=== PATIENT | male | born 1985 | race Caucasian/White ===

== ENCOUNTER 2016-04-05 10:32 | Emergency (ER) | payer OTHER ==
[~2016-04-05] VITALS: Ht 182.9 cm; Wt 96.3 kg
[2016-04-05 10:56] VITALS: BP 132/82; PULSE 64; TEMP 36.7; O2SAT 100; Ht 182.9 cm; Wt 96.3 kg
[2016-04-05] MEDS ORDERED: KETOROLAC TROMETHAMINE 60 MG/2 ML VIAL IM STA (11:59)
[2016-04-05] MEDS ORDERED: CYCL10TA6 PO (12:06)
--- NOTE | 2016-04-05 12:06 | EMERGENCY ROOM VISIT NOTE ---
ED Visit Note First contact with patient: 11:02 CHIEF COMPLAINT: Right low back pain 2 hours HISTORY OF PRESENT INJURY: Patient is a 30-year-old white male who presents emergency department for evaluation of right-sided low back pain that began acutely after he lifted a heavy wheelbarrow of firewood about 2 hours ago. He feels pain in his right low back that radiates slightly to his buttocks. It is worse with movement and particularly he states that it hurts to stand up straight. He has taken nothing, nor performed any interventions for his pain which he rates a 10/10. He reports a history of back problems for which he typically goes to the chiropractor, but states that he has not been there for some time. He denies any numbness, tingling or weakness into the lower extremities. No bowel or bladder incontinence. No falls or direct trauma to the back. REVIEW OF SYSTEMS: Review of systems as per HPI. All other systems reviewed were negative. At least 6 systems reviewed. PMH: Electronic medical records are reviewed and summarized as above/below. See Problem List. SOCIAL HISTORY: Patient lives at home. PHYSICAL EXAM: Vital Signs: Reviewed Nurse's notes. CONSTITUTIONAL: Patient is a well-appearing 30-year-old white male who is awake and alert and seated on the gurney in no acute distress. He does have some discomfort when he stands. NECK: No tenderness over the paraspinous muscles or the spinous processes of the posterior neck. NEUROLOGICAL: Alert and cooperative. Sensory and motor functions grossly intact. HEART: Regular rate and rhythm. LUNGS: Clear to auscultation. ABDOMEN: Bowel sounds are present. Abdomen is soft, nontender and nondistended. BACK: Examination of the patient's back do not note any areas of ecchymosis, abrasions or outward signs of trauma. He has no spinous processes of the thoracolumbar spine. There is some reproducible right-sided paraspinous muscle tenderness. No spasm. He has discomfort with flexion, rotation and lateral bending. LEGS: Normal gait, sensation and light touch is intact. Negative bilateral straight leg raising, normal and symmetrical knee reflexes. EMERGENCY DEPARTMENT COURSE: Patient was seen and examined as above. Old records are reviewed. Prior lumbar spine x-ray showed some mild early degenerative changes. He had driven himself to the emergency department. He was given Toradol 60 mg IM. His mechanism of injury is not consistent with fracture and therefore it was not felt that radiographs were indicated. I do not suspect acute cord compression or cauda equina syndrome. The patient was encouraged to rest, take an anti-inflammatory medicine, applied heat and was given a prescription for Flexeril that he can use as needed. He was encouraged to follow-up with his chiropractic provider tomorrow for further care and evaluation. [facility], and there were no red flags noted. Problem List Medical Problems: (1) Abdominal pain Status: Resolved (2) Acute appendicitis Status: Resolved (3) Anxiety Status: Chronic (4) Back pain Status: Resolved (5) Back pain Status: Resolved (6) Bronchitis Status: Resolved (7) Chest pain Status: Resolved (8) Depression Status: Chronic (9) Diarrhea Status: Resolved (10) Epigastric pain Status: Resolved (11) Esophageal Reflux Status: Chronic (12) Finger laceration Status: Resolved (13) Injury, crush, finger Status: Resolved (14) Right corneal abrasion Status: Resolved (15) RUQ abdominal pain Status: Resolved (16) URI (upper respiratory infection) Status: Resolved (17) VERTIGO Status: Resolved Surgical Problems: (1) History of appendectomy Status: Resolved Current/Historical Medications Scheduled PRN Cyclobenzaprine Hcl (Flexeril), 10 MG PO TID PRN for Muscle Spasms Allergies Coded Allergies: No Known Allergies (Verified , 04/05/16) Vital Signs Date Time Temp Pulse Resp B/P Pulse Ox O2 Delivery O2 Flow Rate FiO2 04/05/16 10:56 36.7 64 20 132/82 100 Room Air Medications Administered Medications (Trade) Dose Ordered Sig/Tegan Route Start Time Stop Time Status Last Admin Dose Admin Ketorolac Tromethamine (Toradol Inj) 60 mg NOW STAT IM 04/05/16 11:59 04/05/16 12:00 DC 04/05/16 12:13 60 MG Departure Information Impression Primary Impression: Lumbar strain Prescriptions Cyclobenzaprine Hcl (FLEXERIL) 10 Mg Tab 10 MG PO TID Y for Muscle Spasms, #20 TAB Prov: Lashonda Garcia PA 04/05/16 Referrals No Doctor, Assigned (PCP) Patient Instructions [facility] Additional Instructions Cyclobenzaprine (Flexeril) 10 mg: Take 1 pills 3 times daily as needed for muscle spasms.. Avoid alcohol, operating machinery or dangerous equipment, working on ladders or roofs, DRIVING, or situations where being under the influence may be dangerous. Ibuprofen(Motrin, Advil) may be used for fever or pain. Use 600mg every six hours as needed. Take with food. Avoid using more than 2400mg in a 24 hour period. Do not use 2400mg per day for more than three consecutive days without physician direction. Prolonged inappropriate use can lead to stomach upset or ulcers. This medication can be taken if you need to drive, work, or perform activities which may be dangerous when taking narcotic pain medication. (AND/OR) Acetaminophen(Tylenol) may be used for fever or pain. Use 1000mg every six hours as needed. Avoid using more than 3000mg in a 24 hour period. This medication can be taken if you need to drive, work, or perform activities which may be dangerous when taking narcotic pain medication. Rest and avoid heavy lifting until your symptoms resolve and then gradually return to full activity. A good rule of thumb is if it hurts your back to perform a certain activity, then it should be avoided until you are healthy again. A heating pad, warm compresses, or a hot shower may help with tight muscles and can be done several times a day as needed. Continue current medications. Return to the ER immediately for any numbness, tingling, severe pain, loss of control of your bowels or bladder, inability to walk, or as needed. Follow up with your primary care physician within 3-5 days for a recheck of your current condition. Problem Qualifiers Primary Impression: Lumbar strain Encounter type: initial encounter Qualified Codes: S39.012A - Strain of muscle, fascia and tendon of lower back, initial encounter
== END 2016-04-05 12:20 | disposition home or self-care (01) ==
LOC: C.EDB 10:34 → C.EDD 12:20
DX: S39.012A Strain of muscle, fascia and tendon of lower back, initial encounter (principal); X50.0XXA Overexertion from strenuous movement or load, initial encounter; Y99.8 Other external cause status

== ENCOUNTER 2016-07-23 08:02 | Emergency (ER) | payer OTHER ==
[~2016-07-23] VITALS: Ht 182.9 cm; Wt 98.0 kg
[2016-07-23 08:11] VITALS: TEMP 36.6; Ht 182.9 cm; Wt 98.0 kg
[2016-07-23] MEDS ORDERED: SODIUM CHLORIDE 0.9% 1000ML 1,000 ML IV STA (08:14)
[2016-07-23 08:54] LABS: BASO % 0.1 %; BASO ABS # 0.01 K/uL (0-0.2); COMPLETE YES; EOS % 3.1 %; HEMATOCRIT 44.6 % (42-52); IG% 0.2 %; LYMPH % 19.6 %; LYMPH ABS # 1.76 K/uL (1.2-3.4); MEAN CELL VOLUME 89.6 fL (80-100); MEAN CORPUSCULAR HEMOGLOBIN 31.9 pg (25-34); MEAN CORPUSCULAR HGB CONC 35.7 g/dl (32-36); MEAN PLATELET VOLUME 10.1 fL (7.4-10.4); MONO % 6.7 %; NEUT % 70.3 %; PLATELET COUNT 193 K/uL (130-400); RED BLOOD COUNT 4.98 M/uL (4.7-6.1)
--- NOTE | 2016-07-23 09:09 | DIAGNOSTIC IMAGING REPORT ---
PA CHEST WITH ABDOMINAL SERIES CLINICAL HISTORY: Upper abdominal pain. FINDINGS: A PA chest radiograph is compared to study dated 02/25/2016. The cardiomediastinal silhouette is unremarkable. The lungs and pleural spaces are clear. No pneumothorax is seen. The bony thorax is grossly intact. Supine and erect abdominal radiographs are correlated with abdominal CT dated 02/09/2014. There is a nonobstructed abdominal bowel gas pattern. No evidence of intraperitoneal free air is seen. Surgical clips are noted in the right lower quadrant. There are no abnormal abdominal calcifications. The lumbosacral spine and bony pelvis appear intact. IMPRESSION: 1. No active disease in the chest. 2. Unremarkable abdominal radiographs. Electronically signed by: Rubén Saucedo M.D. 07/23/2016 9:08 AM Dictated Date/Time: 07/23/2016 9:06 AM
[2016-07-23 09:15] LABS: ALT/SGPT 37 U/L (12-78); BLOOD UREA NITROGEN 6 mg/dl (7-18); BUN/CREATININE RATIO 7.7 (10-20); CARBON DIOXIDE 28 mmol/L (21-32); CHLORIDE 108 mmol/L (98-107); CREATININE 0.82 mg/dl (0.60-1.40); GLUCOSE 93 mg/dl (70-99); POTASSIUM 3.8 mmol/L (3.5-5.1); SODIUM 142 mmol/L (136-145)
[2016-07-23 09:18] LABS: ALKALINE PHOSPHATASE 61 U/L (45-117); AST/SGOT 18 U/L (15-37)
[2016-07-23 09:23] LABS: CALCIUM 8.9 mg/dl (8.5-10.1)
[2016-07-23 09:34] VITALS: BP 128/71; PULSE 63; O2SAT 94
[2016-07-23] MEDS ORDERED: PROM25TA9 PO (09:43)
[2016-07-23 09:58] LABS: URINE APPEARANCE CLEAR (CLEAR); URINE BILIRUBIN NEG (NEG); URINE COLOR YELLOW; URINE NITRITE NEG (NEG); URINE PH 7.5 (4.5-7.5); URINE SPECIFIC GRAVITY 1.003 (1.000-1.030); UROBILINOGEN NEG (NEG)
[2016-07-23 10:10] LABS: MANUAL MICROSCOPIC REQUIRED? NO; REVIEW REQ? NO
--- NOTE | 2016-07-23 16:21 | EMERGENCY ROOM VISIT NOTE ---
History First contact with patient: 08:08 Chief Complaint: ABDOMINAL PAIN Stated Complaint: STOMACH PAINS Nursing Triage Summary: pt here with upper abd pains since last pm. some nausea, no emesis. pt states did have diarrhea yesterday. no hx of stomach issues History of Present Illness The patient is a 30 year old male who presents to the Emergency Room with complaints of intermittent upper abdominal pain/cramping that started last night. The patient reports that he did have approximately 7-8 bouts of watery diarrhea yesterday. He reports nausea without vomiting this morning. The pain is dull in nature without any alleviating or aggravating factors. It does not radiate into the back, lower abdomen, chest or shoulder. Patient has a history of hiatal hernia. He is status post appendectomy. The patient currently rates his discomfort a 4 out of 10 on my exam. He denies any fever or chills. The patient reports that he has had sinus congestion, postnasal drip and productive cough for the past few weeks as well. Review of Systems HEENT: Denies dizziness, visual problems, hearing loss, tinnitus. Denies difficulty swallowing or oral lesions. PULMONARY: Denies shortness of breath or hemoptysis. Otherwise see history of present illness. CARDIOVASCULAR: Denies chest pain, palpitations, dyspnea on exertion, orthopnea or peripheral edema. GASTROINTESTINAL: Reports recent diarrhea and nausea without vomiting. Denies any other GI history. GENITOURINARY: Denies dysuria, frequency, urgency or nocturia. NEUROLOGIC: Denies history of epilepsy, CVA, TIA or chronic headaches. MUSCULOSKELETAL: Denies history of joint tenderness/swelling. SKIN: Denies rashes or lesions. PSYCHIATRIC: History of depression. ENDOCRINE: Denies history of diabetes or thyroid disorders. Past Medical/Surgical History Medical Problems: (1) Abdominal pain (2) Acute appendicitis (3) Anxiety (4) Back pain (5) Back pain (6) Bronchitis (7) Chest pain (8) Depression (9) Diarrhea (10) Epigastric pain (11) Esophageal Reflux (12) Finger laceration (13) Injury, crush, finger (14) Right corneal abrasion (15) RUQ abdominal pain (16) URI (upper respiratory infection) (17) VERTIGO Surgical Problems: (1) History of appendectomy Family History Cancer Diabetes mellitus FH: heart disease Social History Smoking Status: Current Every Day Smoker Alcohol Use: none Drug Use: none Marital Status: single Housing Status: lives with family Occupation Status: employed Current/Historical Medications Scheduled PRN Promethazine Hcl (Phenergan), 25 MG PO Q6H PRN for Nausea Allergies Coded Allergies: No Known Allergies (Verified , 07/23/16) Physical Exam Vital Signs Date Time Temp Pulse Resp B/P Pulse Ox O2 Delivery O2 Flow Rate FiO2 07/23/16 09:34 63 16 128/71 94 Room Air 07/23/16 08:11 36.6 79 16 120/82 95 Room Air Physical Exam CONSTITUTIONAL: Healthy and well nourished. Alert and oriented X 3 with positive affect. Patient does not appear in any acute distress, nor does he appear acutely or toxic. HEENT: Normocephalic, atraumatic. Pupils equal, round and reactive. No scleral icterus or conjunctival injection/pallor. NECK: Full active range of motion without discomfort. No JVD or carotid bruits. RESPIRATORY: Clear to auscultation bilaterally with no wheezing, crackles, rhonchi or stridor. CARDIOVASCULAR: Regular rate and rhythm with no murmurs, rubs or gallops. GASTROINTESTINAL: Bowel sounds present in all quadrants. The patient has generalized epigastric and central abdominal tenderness to palpation. No rigidity, guarding or rebound. Negative Garrido sign. Negative CVA tenderness. No focal left lower quadrant tenderness to palpation. MUSCULOSKELETAL: Full range of motion of all joints without discomfort. INTEGUMENTARY: No rash or other significant dermatologic conditions noted. HEMATOLOGIC: No ecchymosis or petechiae. NEUROLOGIC: Cranial nerves II-XII grossly intact. No focal neurologic deficits noted. Medical Decision & Procedures ER Provider Diagnostic Interpretation: My interpretation of an ECG shows a normal sinus rhythm of [address] elevation or other conduction abnormalities. An abdomen obstruction series with PA chest does not show any obstructive pattern or lung consolidations. Radiologist report is as follows: PA CHEST WITH ABDOMINAL SERIES CLINICAL HISTORY: Upper abdominal pain. FINDINGS: A PA chest radiograph is compared to study dated 02/25/2016. The cardiomediastinal silhouette is unremarkable. The lungs and pleural spaces are clear. No pneumothorax is seen. The bony thorax is grossly intact. Supine and erect abdominal radiographs are correlated with abdominal CT dated 02/09/2014. There is a nonobstructed abdominal bowel gas pattern. No evidence of intraperitoneal free air is seen. Surgical clips are noted in the right lower quadrant. There are no abnormal abdominal calcifications. The lumbosacral spine and bony pelvis appear intact. IMPRESSION: 1. No active disease in the chest. 2. Unremarkable abdominal radiographs. Laboratory Results 07/23/16 08:30 Red Blood Count 4.98, Mean Corpuscular Volume 89.6, Mean Corpuscular Hemoglobin 31.9, Mean Corpuscular Hemoglobin Concent 35.7, Mean Platelet Volume 10.1, Neutrophils (%) (Auto) 70.3, Lymphocytes (%) (Auto) 19.6, Monocytes (%) (Auto) 6.7, Eosinophils (%) (Auto) 3.1, Basophils (%) (Auto) 0.1, Neutrophils # (Auto) 6.33, Lymphocytes # (Auto) 1.76, Monocytes # (Auto) 0.60, Eosinophils # (Auto) 0.28, Basophils # (Auto) 0.01 07/23/16 08:30 Test 07/23/16 08:30 07/23/16 09:30 White Blood Count 9.00 K/uL (4.8-10.8) Red Blood Count 4.98 M/uL (4.7-6.1) Hemoglobin 15.9 g/dL (14.0-18.0) Hematocrit 44.6 % (42-52) Mean Corpuscular Volume 89.6 fL (80-100) Mean Corpuscular Hemoglobin 31.9 pg (25-34) Mean Corpuscular Hemoglobin Concent 35.7 g/dl (32-36) Platelet Count 193 K/uL (130-400) Mean Platelet Volume 10.1 fL (7.4-10.4) Neutrophils (%) (Auto) 70.3 % Lymphocytes (%) (Auto) 19.6 % Monocytes (%) (Auto) 6.7 % Eosinophils (%) (Auto) 3.1 % Basophils (%) (Auto) 0.1 % Neutrophils # (Auto) 6.33 K/uL (1.4-6.5) Lymphocytes # (Auto) 1.76 K/uL (1.2-3.4) Monocytes # (Auto) 0.60 K/uL (0.11-0.59) Eosinophils # (Auto) 0.28 K/uL (0-0.5) Basophils # (Auto) 0.01 K/uL (0-0.2) RDW Standard Deviation 43.1 fL (36.4-46.3) RDW Coefficient of Variation 13.1 % (11.5-14.5) Immature Granulocyte % (Auto) 0.2 % Immature Granulocyte # (Auto) 0.02 K/uL (0.00-0.02) Anion Gap 6.0 mmol/L (3-11) Est Creatinine Clear Calc Drug Dose 156.9 ml/min Estimated GFR () 135.6 Estimated GFR (Non- 117.0 BUN/Creatinine Ratio 7.7 (10-20) Calcium Level 8.9 mg/dl (8.5-10.1) Total Bilirubin 0.4 mg/dl (0.2-1) Direct Bilirubin < 0.1 mg/dl (0-0.2) Aspartate Amino Transf (AST/SGOT) 18 U/L (15-37) Alanine Aminotransferase (ALT/SGPT) 37 U/L (12-78) Alkaline Phosphatase 61 U/L (45-117) Total Creatine Kinase 228 U/L (39-308) Total Protein 7.1 gm/dl (6.4-8.2) Albumin 3.7 gm/dl (3.4-5.0) Lipase 282 U/L (73-393) Urine Color YELLOW Urine Appearance CLEAR (CLEAR) Urine pH 7.5 (4.5-7.5) Urine Specific [place] 1.003 (1.000-1.030) Urine Protein NEG (NEG) Urine Glucose (UA) NEG (NEG) Urine Ketones NEG (NEG) Urine Occult Blood NEG (NEG) Urine Nitrite NEG (NEG) Urine Bilirubin NEG (NEG) Urine Urobilinogen NEG (NEG) Urine Leukocyte Esterase NEG (NEG) The above labs were reviewed and were grossly normal. Medications Administered Medications (Trade) Dose Ordered Sig/Tegan Route Start Time Stop Time Status Last Admin Dose Admin Sodium Chloride (Nss 1000ml) 1,000 ml @ 999 mls/hr Q1H1M STAT IV 07/23/16 08:14 07/23/16 09:14 DC 07/23/16 08:35 999 MLS/HR Procedure IV hydration: The patient received a liter normal saline bolus ED Course Patient history and physical exam were performed. Nurse's notes were reviewed. Vital signs were reviewed and were normal. IV access was established, and labs were drawn. The patient refused any analgesics or antiemetics. The patient was hydrated with normal saline. An ECG and abdomen obstruction series with PA chest view were normal. Review of labs showed no acute findings. The patient reported improvement of the symptoms, and requested discharge home. The patient was advised that his symptoms are most consistent with a gastroenteritis. He was given instructions on a clear liquid diet. The patient was provided a prescription for Phenergan as needed to prevent nausea. Loperamide as needed for diarrhea. The patient was encouraged to follow-up with his PCP if symptoms are not improving within the next 2-3 days. Return to the emergency department for any significantly worsening symptoms. The patient was happy with plan of care, voiced understanding of all discharge instructions , and denied any significant symptoms at the time of discharge. The case was also discussed with Dr. Wall, ED attending physician, who agrees with workup and plan of care. Medical Decision Patient presents to the emergency Department with primary complaint of nausea, vomiting and diarrhea, along with mild abdominal cramping. His workup today is unremarkable. Laboratory studies are not suggestive of pancreatitis, cholecystitis or hepatitis. His exam is otherwise benign. ECG was normal as well, and I therefore do not suspect cardiac referred discomfort. I do feel that the patient is safe for outpatient follow-up with his PCP if symptoms are not significantly improving. Impression Primary Impression: Acute gastroenteritis Departure Information Prescriptions Promethazine Hcl (Phenergan) 25 Mg Tab 25 MG PO Q6H Y for Nausea, #15 TAB Prov: Wiley Lr PA 07/23/16 Referrals No Doctor, Assigned (PCP) Patient Instructions My [facility]
== END 2016-07-23 10:00 | disposition home or self-care (01) ==
LOC: C.EDB 08:02 → C.EDA 10:00
DX: K52.9 Noninfective gastroenteritis and colitis, unspecified (principal); F41.9 Anxiety disorder, unspecified; F32.9 Major depressive disorder, single episode, unspecified; K21.9 Gastro-esophageal reflux disease without esophagitis; Z80.9 Family history of malignant neoplasm, unspecified; Z83.3 Family history of diabetes mellitus; Z82.49 Family history of ischemic heart disease and other diseases of the circulatory system; F17.210 Nicotine dependence, cigarettes, uncomplicated

== ENCOUNTER 2016-10-07 09:26 | Emergency (ER) | payer OTHER ==
[~2016-10-07] VITALS: Ht 182.9 cm; Wt 95.7 kg
[~2016-10-07 09:26] MED LIST: PROM25TA9 PO
[2016-10-07 09:30] VITALS: TEMP 36.7; Ht 182.9 cm; Wt 95.7 kg
[2016-10-07 09:43] VITALS: O2SAT 94
--- NOTE | 2016-10-07 09:54 | DIAGNOSTIC IMAGING REPORT ---
CHEST ONE VIEW PORTABLE CLINICAL HISTORY: Chest Pain dyspnea COMPARISON STUDY: 07/23/2016 FINDINGS: The bones soft tissues and hemidiaphragms are normal. The cardiomediastinal silhouette is normal. The lungs are clear. The pulmonary vasculature is normal. IMPRESSION: Negative chest. The above report was generated using voice recognition software. It may contain grammatical, syntax or spelling errors. Electronically signed by: Michael Modi M.D. 10/07/2016 9:52 AM Dictated Date/Time: 10/07/2016 9:52 AM
[2016-10-07] MEDS ORDERED: KETOROLAC TROMETHAMINE 30 MG/ML VIAL IV STA (10:06)
[2016-10-07 10:08] LABS: BASO % 0.3 %; BASO ABS # 0.02 K/uL (0-0.2); COMPLETE YES; IG% 0.3 %; LYMPH % 24.9 %; LYMPH ABS # 1.98 K/uL (1.2-3.4); MEAN CELL VOLUME 88.8 fL (80-100); MEAN CORPUSCULAR HEMOGLOBIN 31.8 pg (25-34); MEAN CORPUSCULAR HGB CONC 35.8 g/dl (32-36); MONO % 7.8 %; NEUT % 63.7 %; PLATELET COUNT 195 K/uL (130-400); RED BLOOD COUNT 5.07 M/uL (4.7-6.1); WHITE BLOOD COUNT 7.94 K/uL (4.8-10.8)
[2016-10-07 10:37] LABS: BLOOD UREA NITROGEN 8 mg/dl (7-18); BUN/CREATININE RATIO 7.5 (10-20); CALCIUM 9.2 mg/dl (8.5-10.1); CARBON DIOXIDE 27 mmol/L (21-32); CHLORIDE 108 mmol/L (98-107); GLUCOSE 94 mg/dl (70-99); POTASSIUM 3.9 mmol/L (3.5-5.1); SODIUM 142 mmol/L (136-145)
[2016-10-07 10:42] LABS: CKMB/CK RATIO 0.7 (0-3.0)
[2016-10-07 12:51] VITALS: BP 115/75; PULSE 71; O2SAT 97
--- NOTE | 2016-10-07 14:41 | EMERGENCY ROOM VISIT NOTE ---
History Report prepared by Velma: Fredy Richard Under the Supervision of: Dr. Denis Lutz D.O. 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 SOB. Denies dizziness or lightheadedness. Pain into back. Denies hx of similar pain. Pain worse with deep breath. History of Present Illness The patient is a 30 year old male who presents to the Emergency Room with complaints of constant chest pain starting this morning around 0830 this morning. The patient states that the pain is radiating to his back, and the pain is worsened with movement. He states that he was lifting heavy pots earlier , and that is when the pain started. The patient states that he has never had pain like this before. He denies any history of diabetes, hypertension, high cholesterol or heart disease. He denies any leg swelling, recent trips, surgeries, coughing up blood, or history of blood clots. He states that he is currently a smoker. Pt denies headache, change in vision, fevers, shortness of breath, nausea, vomiting, diarrhea, pain with urination, and melena. Source of History: patient Onset: 0830 Position: chest Timing: constant Modifying Factors (Worsening): movement Associated Symptoms: + back pain Review of Systems See HPI for pertinent positives & negatives. A total of 10 systems reviewed and were otherwise negative. Past Medical & Surgical Medical Problems: (1) Abdominal pain (2) Acute appendicitis (3) Anxiety (4) Back pain (5) Back pain (6) Bronchitis (7) Chest pain (8) Depression (9) Diarrhea (10) Epigastric pain (11) Esophageal Reflux (12) Finger laceration (13) Injury, crush, finger (14) Right corneal abrasion (15) RUQ abdominal pain (16) URI (upper respiratory infection) (17) VERTIGO Surgical Problems: (1) History of appendectomy Family History Cancer Diabetes mellitus FH: heart disease Social History Smoking Status: Current Every Day Smoker Alcohol Use: none Drug Use: none Marital Status: single Housing Status: lives with family Occupation Status: employed Current/Historical Medications No Active Prescriptions or Reported Meds Allergies Coded Allergies: No Known Allergies (Verified , 10/07/16) Physical Exam Vital Signs Date Time Temp Pulse Resp B/P (MAP) Pulse Ox O2 Delivery O2 Flow Rate FiO2 10/07/16 12:51 71 18 115/75 97 10/07/16 11:15 60 18 113/74 94 Room Air 10/07/16 10:20 72 16 111/76 94 Room Air 10/07/16 09:46 74 10/07/16 09:43 94 Room Air 10/07/16 09:30 36.7 84 18 120/77 96 Room Air Physical Exam GENERAL: Sitting up in bed, alert, well appearing, well nourished, no distress, non-toxic EYE EXAM: normal conjunctiva OROPHARYNX: no exudate, no erythema, lips, buccal mucosa, and tongue normal and mucous membranes are moist NECK: supple, no nuchal rigidity, no adenopathy, non-tender LUNGS: Clear to auscultation. Normal chest wall mechanics HEART: no murmurs, S1 normal and S2 normal CHEST: Acute reproducible tenderness over the anterior chest wall on palpation as well as movement of the left upper extremity. The pain is tracking up into the left trapezius on palpation. ABDOMEN: abdomen soft, non-tender, normo-active bowel sounds, no masses, no rebound or guarding. BACK: Back is symmetrical on inspection and there is no deformity, no midline tenderness, no CVA tenderness. SKIN: no rashes and no bruising UPPER EXTREMITIES: upper extremities are grossly normal. LOWER EXTREMITIES: Calves are equal bilaterally.No pitting edema. NEURO EXAM: Normal sensorium, cranial nerves II-XII grossly intact, normal speech, no gross weakness of arms, no gross weakness of legs. Gross sensation intact. Medical Decision & Procedures ER Provider Diagnostic Interpretation: Radiology results as stated below per my review and the radiologist's interpretation: CHEST ONE VIEW PORTABLE CLINICAL HISTORY: Chest Pain dyspnea COMPARISON STUDY: 07/23/2016 FINDINGS: The bones soft tissues and hemidiaphragms are normal. The cardiomediastinal silhouette is normal. The lungs are clear. The pulmonary vasculature is normal. IMPRESSION: Negative chest. The above report was generated using voice recognition software. It may contain grammatical, syntax or spelling errors. Electronically signed by: Michael Modi M.D. 10/07/2016 9:52 AM Dictated Date/Time: 10/07/2016 9:52 AM Laboratory Results 10/07/16 09:45 Red Blood Count 5.07, Mean Corpuscular Volume 88.8, Mean Corpuscular Hemoglobin 31.8, Mean Corpuscular Hemoglobin Concent 35.8, Mean Platelet Volume 10.0, Neutrophils (%) (Auto) 63.7, Lymphocytes (%) (Auto) 24.9, Monocytes (%) (Auto) 7.8, Eosinophils (%) (Auto) 3.0, Basophils (%) (Auto) 0.3, Neutrophils # (Auto) 5.06, Lymphocytes # (Auto) 1.98, Monocytes # (Auto) 0.62, Eosinophils # (Auto) 0.24, Basophils # (Auto) 0.02 10/07/16 09:45 Test 10/07/16 09:45 10/07/16 11:35 White Blood Count 7.94 K/uL (4.8-10.8) Red Blood Count 5.07 M/uL (4.7-6.1) Hemoglobin 16.1 g/dL (14.0-18.0) Hematocrit 45.0 % (42-52) Mean Corpuscular Volume 88.8 fL (80-100) Mean Corpuscular Hemoglobin 31.8 pg (25-34) Mean Corpuscular Hemoglobin Concent 35.8 g/dl (32-36) Platelet Count 195 K/uL (130-400) Mean Platelet Volume 10.0 fL (7.4-10.4) Neutrophils (%) (Auto) 63.7 % Lymphocytes (%) (Auto) 24.9 % Monocytes (%) (Auto) 7.8 % Eosinophils (%) (Auto) 3.0 % Basophils (%) (Auto) 0.3 % Neutrophils # (Auto) 5.06 K/uL (1.4-6.5) Lymphocytes # (Auto) 1.98 K/uL (1.2-3.4) Monocytes # (Auto) 0.62 K/uL (0.11-0.59) Eosinophils # (Auto) 0.24 K/uL (0-0.5) Basophils # (Auto) 0.02 K/uL (0-0.2) RDW Standard Deviation 44.0 fL (36.4-46.3) RDW Coefficient of Variation 13.5 % (11.5-14.5) Immature Granulocyte % (Auto) 0.3 % Immature Granulocyte # (Auto) 0.02 K/uL (0.00-0.02) Anion Gap 7.0 mmol/L (3-11) Est Creatinine Clear Calc Drug Dose 115.7 ml/min Estimated GFR () 102.4 Estimated GFR (Non- 88.4 BUN/Creatinine Ratio 7.5 (10-20) Calcium Level 9.2 mg/dl (8.5-10.1) Total Creatine Kinase 482 U/L (39-308) Creatine Kinase MB 3.5 ng/ml (0.5-3.6) Creatine Kinase MB Ratio 0.7 (0-3.0) Troponin I < 0.015 ng/ml (0-0.045) Laboratory results per my review. Medications Administered Medications (Trade) Dose Ordered Sig/Tegan Route Start Time Stop Time Status Last Admin Dose Admin Ketorolac Tromethamine (Toradol Inj) 30 mg NOW STAT IV 10/07/16 10:06 10/07/16 10:07 DC 10/07/16 10:18 30 MG ECG Indication: chest pain Rate (beats per minute): 73 Rhythm: normal sinus Findings: no ectopy, other (RR' in the septal leads, Poor baseline) ED Course ED COURSE: Vital signs were reviewed and showed normal vitals The patients medical record was reviewed The above diagnostic studies were performed and reviewed. ED treatments and interventions as stated above. 0958: The patient was evaluated in room B6. A complete history and physical examination was performed. 1006: Toradol Inj 30mg IV 1236: Upon reevaluation, the patient is feeling better.I discussed my findings with the patient and he understands and agrees with the treatment plan. Based on the patients age, coexisting illnesses, exam and lab findings the decision to treat as an outpatient was made. The patient remained stable while under my care. The patient appeared well at the time of discharge. Medical Decision Differential diagnoses includes but is not limited to acute coronary syndrome, myocardial infarction, pericarditis, pulmonary embolus, aortic dissection, pneumonia, pneumothorax, musculoskeletal, shingles, esophageal. Patient is a 30-year-old male who presents the ER for chest pain which started while lifting a box. Pain is worsened with twisting turning or bending. Pain is reproducible. Denies any history of diabetes, hypertension, hyperlipidemia, CAD, or sudden within family at a young age. Chest x-ray was unremarkable. Troponins were negative 2. EKG unremarkable. Patient was updated bedside. Pain improved with Toradol. Patient was discharged follow-up with PCP. Discussed with Pt concerning signs and symptoms to watch out for. Pt was instructed to follow up with their PCP and discussed with the patient their option to return to the ED at anytime for persistent or worsening symptoms. The appropriate anticipatory guidance and out-patient management, including indications for return to the emergency department, were explained at length to the patient and understood. Medication Reconcilliation Current Medication List: was personally reviewed by me Blood Pressure Screening Patient's blood pressure: Normal blood pressure Impression Primary Impression: Chest wall pain Scribe Attestation The scribe's documentation has been prepared under my direction and personally reviewed by me in its entirety. I confirm that the note above accurately reflects all work, treatment, procedures, and medical decision making performed by me. Departure Information Dispostion Home / Self-Care Prescriptions No Active Prescriptions or Reported Meds Referrals Trisha Lopez (PCP) Forms HOME CARE DOCUMENTATION FORM, IMPORTANT VISIT INFORMATION Patient Instructions ED Chest Pain NonCardiac, My [facility] Additional Instructions Please follow up with your primary care doctor or if you are a student, [facility] with in the next 24 hours. Any worsening of your symptoms, please return to the ED immediately. This includes any fevers greater than 100.4, worsening pain, chest pain, shortness breath, persistent nausea, vomiting, unable to eat or drink, or any other concerning signs or symptoms from your standpoint. Please take Motrin or Tylenol as needed for your pain. You were found to have a blood pressure greater than 120 systolic over 90 diastolic. Due to the new Medicare guidelines, we are now recommending that you follow up with your primary care doctor in regards to this elevated blood pressure.
== END 2016-10-07 12:52 | disposition home or self-care (01) ==
LOC: C.EDB 09:27
DX: R07.89 Other chest pain (principal); F17.210 Nicotine dependence, cigarettes, uncomplicated; F41.9 Anxiety disorder, unspecified; F32.9 Major depressive disorder, single episode, unspecified; K21.9 Gastro-esophageal reflux disease without esophagitis; Z80.9 Family history of malignant neoplasm, unspecified; Z83.3 Family history of diabetes mellitus

== ENCOUNTER 2017-03-10 10:46 | Emergency (ER) | payer OTHER ==
[~2017-03-10] VITALS: Ht 182.9 cm; Wt 98.9 kg
[2017-03-10 10:59] VITALS: BP 127/83; PULSE 95; TEMP 36.7; O2SAT 95; Ht 182.9 cm; Wt 98.9 kg
[2017-03-10] MEDS ORDERED: AMOXICILLIN 250 MG CAP PO STA (11:40)
[2017-03-10] MEDS ORDERED: PRED50TA PO (11:43)
[2017-03-10] MEDS ORDERED: AMOX500C3 PO (11:43)
--- NOTE | 2017-03-10 11:44 | EMERGENCY ROOM VISIT NOTE ---
ED Visit Note First contact with patient: 11:02 CHIEF COMPLAINT: Sore throat 3 days HISTORY OF PRESENT ILLNESS: Patient is a generally healthy 31-year-old white male who presents the emergency department for evaluation of a sore throat. His symptoms began about 3 days ago. He notes bilateral throat pain that is worse with swallowing. He rates his discomfort a 7/10. He subjectively had chills and felt feverish, temperature yesterday was 100.8F orally. He has been taking [id number] medications for his symptoms. He also had some body and muscle aches, but those have improved. He does note a minor headache and some nasal congestion. He denies any ear pain, sinus congestion or difficulty breathing. No rash. Denies any posterior neck pain or stiffness. He reports that his children have been ill, but not with a sore throat. REVIEW OF SYSTEMS: Review of systems as per HPI. All other systems reviewed were negative. At least 6 systems reviewed. PMH: Electronic medical records are reviewed and summarized as above/below. See Problem List. SOCIAL HISTORY: Patient lives at home with his and children. Employed. He is a smoker. PHYSICAL EXAM: Vital Signs: Reviewed Nurse's notes. Patient is afebrile. MENTAL STATUS: Alert and cooperative. Nontoxic appearing. HEAD: Atraumatic, without temporal or scalp tenderness. EYES: PERRL, EOMI, no discharge or injection. EARS: Tympanic membranes intact, not inflamed, have normal contour. External canals clear. NOSE: Nares patent, turbinates edematous and boggy with clear rhinorrhea. MOUTH: Mucous membranes moist, no lesions, tongue and gums appear normal. THROAT: Examination of the posterior pharynx shows swelling and erythema of the tonsils, soft palate and uvula, with white exudate noted. Uvula is midline, there is no trismus. Airway is patent. NECK: Supple, nontender, cervical chain lymphadenopathy noted. No nuchal rigidity. HEART: Regular rate and rhythm without murmurs, ectopy, gallops, or rubs. LUNGS: Clear to auscultation and breath sounds equal, no wheezes, rales, or rhonchi. SKIN: Normal. NEUROLOGICAL: Sensory and motor functions grossly intact. Normal gait. ED course: The patient was seen and evaluated as above. A rapid strep had been performed and was negative. Clinically however the patient has a fever, cervical chain lymphadenopathy and exudate of tonsillitis, and will be treated with antibiotics. He does not have any findings consistent with meningitis or encephalitis, he does not present with retropharyngeal or peritonsillar abscess. He was given amoxicillin 500 mg orally and prednisone 60 mg orally in the emergency department. He was educated on the worrisome signs or symptoms for which she should return to the emergency department. Medication reconciliation: I attest that I have personally reviewed the patient' s current medication list. Blood pressure screening : Patient was found to have normal blood pressure on screening and does not require follow-up. Problem List Medical Problems: (1) Abdominal pain Status: Resolved (2) Acute appendicitis Status: Resolved (3) Acute gastroenteritis Status: Resolved (4) Anxiety Status: Chronic (5) Back pain Status: Resolved (6) Back pain Status: Resolved (7) Bronchitis Status: Resolved (8) Chest pain Status: Resolved (9) Chest wall pain Status: Resolved (10) Chest wall pain Status: Resolved (11) Depression Status: Chronic (12) Diarrhea Status: Resolved (13) Epigastric pain Status: Resolved (14) Esophageal Reflux Status: Chronic (15) Finger laceration Status: Resolved (16) Gastroenteritis Status: Resolved (17) Injury, crush, finger Status: Resolved (18) Lumbar strain Status: Resolved (19) Right corneal abrasion Status: Resolved (20) RUQ abdominal pain Status: Resolved (21) URI (upper respiratory infection) Status: Resolved (22) VERTIGO Status: Resolved Surgical Problems: (1) History of appendectomy Status: Resolved Current/Historical Medications Scheduled Amoxicillin (Amoxil), 500 MG PO TID Prednisone (Prednisone), 50 MG PO DAILY Allergies Coded Allergies: No Known Allergies (Verified , 03/10/17) Vital Signs Date Time Temp Pulse Resp B/P (MAP) Pulse Ox O2 Delivery O2 Flow Rate FiO2 03/10/17 10:59 36.7 95 18 127/83 95 Room Air Medications Administered Medications (Trade) Dose Ordered Sig/Tegan Route Start Time Stop Time Status Last Admin Dose Admin Amoxicillin (Amoxil Cap) 500 mg NOW STAT PO 03/10/17 11:40 03/10/17 11:41 DC 03/10/17 11:46 500 MG Prednisone (PredniSONE TAB) 60 mg NOW STAT PO 03/10/17 11:40 03/10/17 11:41 DC 03/10/17 11:46 60 MG Departure Information Impression Primary Impression: Exudative tonsillitis Prescriptions Amoxicillin (AMOXIL) 500 Mg Cap 500 MG PO TID, #30 CAP Prov: Lashonda Garcia PA 03/10/17 Prednisone (Prednisone) 50 Mg Tab 50 MG PO DAILY for 4 Days, #4 TAB Prov: Lashonda Garcia PA 03/10/17 Referrals No Doctor, Assigned (PCP) Patient Instructions My [facility] Additional Instructions Amoxicillin 500mg: Take one pill 3times daily for 10 days for your throat infection. All antibiotics can cause diarrhea. If this occurs and you feel worse or it does not resolve in 1-2 days follow up with your doctor or return to the Emergency Department as this could be signs of serious underlying problems. Any medication can cause an allergic reaction, stop the pills immediately and return to the ER for rash, hives, breathing difficulties, or swelling. Prednisone 50mg: Once daily until the prescription is finished. It is best to take this earlier in the day as some patients note occasional difficulty falling asleep when taken in the late evening. Acetaminophen(Tylenol) may be used for fever or pain. Use 1000mg every six hours as needed. Avoid using more than 3000mg in a 24 hour period. (AND/OR) Ibuprofen(Motrin, Advil) may be used for fever or pain. Use 600mg every six hours as needed. Take with food. Avoid using more than 2400mg in a 24 hour period. Do not use 2400mg per day for more than three consecutive days without physician direction. Prolonged inappropriate use can lead to stomach upset or ulcers. Rest and drink plenty of fluids. Controlling your fever/pain with Tylenol and Ibuprofen as above will make you feel better. Continue current medications. Return to the ER for severe headache, neck stiffness, chest pain, difficulty breathing, fevers, vomiting, worsening of your condition, or as needed. Follow up with your primary physician this week for a recheck of your current condition.
--- NOTE | 2017-03-11 12:47 | Pharmacy Progress Note ---
ED Pharmacist Culture FollowUp Date of Service: Mar 11, 2017. Patient was sent home with a prescription for Amoxicillin 500 mg TID, which should cover the Group A strep growing from the patient's throat culture.
== END 2017-03-10 11:45 | disposition home or self-care (01) ==
LOC: C.EDB 10:49 → C.EDD 11:45
DX: J03.90 Acute tonsillitis, unspecified (principal); F17.200 Nicotine dependence, unspecified, uncomplicated

== ENCOUNTER 2017-03-22 08:31 | Emergency (ER) | payer OTHER ==
[~2017-03-22] VITALS: Ht 182.9 cm; Wt 98.0 kg
[2017-03-22 08:38] VITALS: BP 133/91; PULSE 98; TEMP 36.7; O2SAT 96; Ht 182.9 cm; Wt 98.0 kg
[2017-03-22] MEDS ORDERED: AMOX500C3 PO (08:51)
--- NOTE | 2017-03-22 08:56 | EMERGENCY ROOM VISIT NOTE ---
History First contact with patient: 08:42 Chief Complaint: SORETHROAT Stated Complaint: THROAT History of Present Illness The patient is a 31 year old male who presents to the Emergency Room with complaints of persistent mild throat pain and dryness. The patient reports that he was here a few weeks ago with similar symptoms, and given a prescription for amoxicillin antibiotics. He was told that he had a negative strep test. The patient reports a mild cough that was blood-tinged this morning. He denies any shortness of breath, fevers or chills or difficulty swallowing. He reports that the throat pain is less painful than it was before. He denies any runny nose, sinus congestion or headache. He denies any pain on my exam. Review of Systems 10 system review was performed and was negative except for pertinent positives and negatives as indicated in history of present illness Past Medical/Surgical History Medical Problems: (1) Abdominal pain (2) Acute appendicitis (3) Acute gastroenteritis (4) Anxiety (5) Back pain (6) Back pain (7) Bronchitis (8) Chest pain (9) Chest wall pain (10) Chest wall pain (11) Depression (12) Diarrhea (13) Epigastric pain (14) Esophageal Reflux (15) Finger laceration (16) Gastroenteritis (17) Injury, crush, finger (18) Lumbar strain (19) Right corneal abrasion (20) RUQ abdominal pain (21) URI (upper respiratory infection) (22) VERTIGO Surgical Problems: (1) History of appendectomy Family History Cancer Diabetes mellitus FH: heart disease Social History Smoking Status: Current Every Day Smoker Alcohol Use: none Drug Use: none Marital Status: single Housing Status: lives with family Occupation Status: employed Current/Historical Medications Scheduled Amoxicillin (Amoxil), 1 CAP PO TID Physical Exam Vital Signs Date Time Temp Pulse Resp B/P (MAP) Pulse Ox O2 Delivery O2 Flow Rate FiO2 03/22/17 08:38 36.7 98 16 133/91 96 Room Air Physical Exam CONSTITUTIONAL: Healthy and well nourished. Alert and oriented X 3 with positive affect. She does not appear acutely ill or toxic. HEENT: Normocephalic, atraumatic. Pupils equal, round and reactive. NECK: Full active range of motion without discomfort. LYMPHATICS: Mild anterior cervical chain adenopathy noted. RESPIRATORY: Clear to auscultation bilaterally with no wheezing, crackles, rhonchi or stridor. CARDIOVASCULAR: Regular rate and rhythm with no murmurs, rubs or gallops. GASTROINTESTINAL: Bowel sounds present in all quadrants. Soft and nontender to palpation. MUSCULOSKELETAL: Full range of motion of all joints without discomfort. INTEGUMENTARY: No rash or other significant dermatologic conditions noted. NEUROLOGIC: No focal neurologic deficits noted. Medical Decision & Procedures ED Course Patient history and physical exam were performed. Nurse's notes were reviewed. Vital signs were reviewed and normal. I did review documentation from the patient's last ED visit. Although his rapid strep as was negative, strep cultures were positive for group A strep. The patient reports that he completed almost 6 days of antibiotics. He estimates that he has 4 days of antibiotics left at home. The patient was instructed to complete those antibiotics, and was provided additional 6 days of amoxicillin antibiotics. I did explain the importance of all these completing antibiotics as prescribed to avoid resistance. The patient was encouraged to follow-up with his PCP as needed for any persistent symptoms, worsening cough or developing fever. The patient was happy with plan of care, voiced understanding of all discharge instructions, and denied any pain at the time of discharge. Medical Decision Medication Reconcilliation Current Medication List: was personally reviewed by me Blood Pressure Screening Patient's blood pressure: Normal blood pressure Impression Primary Impression: Acute streptococcal tonsillitis Departure Information Dispostion Home / Self-Care Prescriptions Amoxicillin (AMOXIL) 500 Mg Cap 1 CAP PO TID for 6 Days, #18 CAP Prov: Wiley Lr PA 03/22/17 Forms HOME CARE DOCUMENTATION FORM, IMPORTANT VISIT INFORMATION Patient Instructions My [facility] Additional Instructions Complete what remaining amoxicillin antibiotics you have at home, plus an additional 6 day treatment as prescribed today. It is important that you ALWAYS complete antibiotics as prescribed to avoid resistance in the future. Ibuprofen 800 mg and/or Tylenol 1000 mg every 8 hours. You may also alternate these medications for more effective pain relief: Ibuprofen --4 HRS--> Tylenol --4 HRS--> ibuprofen --4 HRS--> Tylenol .... Follow-up with your family doctor as needed for any persistent symptoms. Problem Qualifiers Primary Impression: Acute streptococcal tonsillitis Streptococcal tonsillitis recurrence: recurrent Qualified Codes: J03.01 - Acute recurrent streptococcal tonsillitis
== END 2017-03-22 08:58 | disposition home or self-care (01) ==
LOC: C.EDB 08:32 → C.EDA 08:58
DX: J03.01 Acute recurrent streptococcal tonsillitis (principal); F41.9 Anxiety disorder, unspecified; F32.9 Major depressive disorder, single episode, unspecified; K21.9 Gastro-esophageal reflux disease without esophagitis; F17.210 Nicotine dependence, cigarettes, uncomplicated; Z80.9 Family history of malignant neoplasm, unspecified; Z83.3 Family history of diabetes mellitus; Z82.49 Family history of ischemic heart disease and other diseases of the circulatory system

== ENCOUNTER 2017-04-05 15:11 | Emergency (ER) | payer SELFPAY ==
[~2017-04-05] VITALS: Ht 182.9 cm; Wt 100.0 kg
[2017-04-05 15:34] VITALS: TEMP 36.9; Ht 182.9 cm; Wt 100.0 kg
[2017-04-05] MEDS ORDERED: NYSS/ PO (16:00)
[2017-04-05] MEDS ORDERED: HYDR-5688 PO (16:01)
--- NOTE | 2017-04-05 16:02 | EMERGENCY ROOM VISIT NOTE ---
History First contact with patient: 15:43 Chief Complaint: OTHER COMPLAINT Stated Complaint: THRUSH? CRACKED BURNING TONGUE History of Present Illness The patient is a 31 year old male who presents to the Emergency Room via private vehicle with complaints of "thrush, cracked burning tongue". The patient states that he was recently treated with amoxicillin for his streptococcal pharyngitis. He states that he has 2 days left. He states that unfortunately he began with pain in the tongue about 3-4 days ago. He notes with eating or drinking it is very painful. He notes cracks in the top of his tongue. He had this before and had thrush. This was about 10 years ago. He denies any other rashes. There is no history of immunocompromised state or HIV. Review of Systems A complete 6-point Review of Systems was discussed with the patient, with pertinent positives and negatives listed in the History of Present Illness. All remaining Review of Systems questions can be considered negative unless otherwise specified. Past Medical/Surgical History Medical Problems: (1) Abdominal pain (2) Acute appendicitis (3) Acute gastroenteritis (4) Anxiety (5) Back pain (6) Back pain (7) Bronchitis (8) Chest pain (9) Chest wall pain (10) Chest wall pain (11) Depression (12) Diarrhea (13) Epigastric pain (14) Esophageal Reflux (15) Finger laceration (16) Gastroenteritis (17) Injury, crush, finger (18) Lumbar strain (19) Right corneal abrasion (20) RUQ abdominal pain (21) URI (upper respiratory infection) (22) VERTIGO Surgical Problems: (1) History of appendectomy Family History Cancer Diabetes mellitus FH: heart disease Social History Smoking Status: Current Every Day Smoker Alcohol Use: none Drug Use: none Marital Status: single Housing Status: lives with family Occupation Status: employed Current/Historical Medications Scheduled Nystatin (Nystatin Suspension), 5 ML PO Q6 Scheduled PRN Hydrocodone/Acetaminophen 5MG/325MG ([place] 5MG/325MG), 1-2 TABLET PO Q6 PRN for Pain Physical Exam Vital Signs Date Time Temp Pulse Resp B/P (MAP) Pulse Ox O2 Delivery O2 Flow Rate FiO2 04/05/17 16:29 88 16 129/82 99 04/05/17 15:34 36.9 94 16 134/89 97 Room Air Physical Exam VITAL SIGNS - Vital signs and nursing notes were reviewed. Stable. Afebrile. GENERAL -31-year-old male appearing his stated age who is in no acute distress. Communicates well with provider and answers questions appropriately. SKIN - Without rashes. No petechial rashes. No evidence of SJS or emergent rash. MOUTH/OROPHARYNX - Without perioral cyanosis. Buccal mucosa pink and moist and without leukoplakia. Tongue midline with equal elevation of palate bilaterally. Tongue appears dry, has a small amount of white exudate, and has small little groove/digits with evidence of cracking. Pharynx no longer showing signs of pharyngitis. Medical Decision & Procedures Medical Decision Patient was seen and evaluated as above. He notes that his sore throat has resolved. He developed what appears to be thrush/oral candidiasis. He'll be given nystatin swash and swallow 14 days if need be. He was given a coupon and is to go to [facility] to have this filled secondary to this being the cheapest place. He notes that he lost his insurance beginning of the month. I did work closely with her pharmacy staff here who also call [facility] to arrange an appropriate garza for the patient. He appears stable for outpatient management. He was informed upon other potential causes of thrush to include but not limited to diabetes, immunocompromised state, HIV and notes that he does not have any of these will follow with the family doctor. He will also be given a short prescription for pain medication secondary to the pain associated with the tongue. There is no edema or evidence of airway compromise. He was educated upon management, educated upon worrisome symptoms which to return, had questions answered prior to discharge, and was discharged home in good condition. In evaluation treatment this patient following differential diagnoses were entertained: Thrush, oral candidiasis, pharyngitis, tonsillitis, among others. Impression Primary Impression: Oral candidiasis Departure Information Dispostion Home / Self-Care Condition GOOD Prescriptions Hydrocodone/Acetaminophen 5MG/325MG ([place] 5MG/325MG) Tab 1-2 TABLET PO Q6 Y for Pain, #15 TAB For Initial Treatment Prov: Rajan Arrington PA-C 04/05/17 Nystatin (Nystatin Suspension) 1 Ml Susp 5 ML PO Q6 for 14 Days, #280 ML Prov: Rajan Arrington PA-C 04/05/17 Referrals No Doctor, Assigned (PCP) Patient Instructions My [facility] Additional Instructions You were seen in the emergency department for thrush. Please continue the antibiotic for 2 more days. Please use the nystatin swish and swallow, 5 mL's every 6 hours. Swish in the mouth and leave and as long as possible ideally several minutes, then swallow. This is for 7-14 days. Please use it for at least 7 days, but if it goes away after that continue for 2 more days. The pain medication is only for severe pain. No driving with this. Do not take Tylenol with this. Please call your family doctor to schedule follow-up. Please return with any new/concerning symptoms.
[2017-04-05 16:29] VITALS: BP 129/82; PULSE 88; O2SAT 99
== END 2017-04-05 16:30 | disposition home or self-care (01) ==
LOC: C.EDB 15:13 → C.EDD 16:30
DX: B37.0 Candidal stomatitis (principal); F17.200 Nicotine dependence, unspecified, uncomplicated; Z90.89 Acquired absence of other organs; Z83.3 Family history of diabetes mellitus

== ENCOUNTER 2017-06-08 11:57 | Emergency (ER) | payer SELFPAY ==
[~2017-06-08] VITALS: Ht 182.9 cm; Wt 98.5 kg
[~2017-06-08 11:57] MED LIST changes: +HYDR-5688 PO; +NYSS/ PO; -PROM25TA9 PO
[2017-06-08 12:00] VITALS: TEMP 36.6; Ht 182.9 cm; Wt 98.5 kg
[2017-06-08 12:27] LABS: BASO % 0.3 %; BASO ABS # 0.02 K/uL (0-0.2); EOS % 1.6 %; EOS ABS # 0.12 K/uL (0-0.5); HEMATOCRIT 44.9 % (42-52); HEMOGLOBIN 16.2 g/dL (14.0-18.0); IG# 0.02 K/uL (0.00-0.02); LYMPH % 22.2 %; LYMPH ABS # 1.67 K/uL (1.2-3.4); MEAN CELL VOLUME 90.7 fL (80-100); MEAN CORPUSCULAR HEMOGLOBIN 32.7 pg (25-34); MEAN CORPUSCULAR HGB CONC 36.1 g/dl (32-36); MEAN PLATELET VOLUME 9.4 fL (7.4-10.4); MONO % 8.1 %; MONO ABS # 0.61 K/uL (0.11-0.59); NEUT % 67.5 %; NEUT ABS # 5.07 K/uL (1.4-6.5); PLATELET COUNT 187 K/uL (130-400); RED CELL DISTRIBUTION WIDTH CV 13.7 % (11.5-14.5); RED CELL DISTRIBUTION WIDTH SD 44.8 fL (36.4-46.3); WHITE BLOOD COUNT 7.51 K/uL (4.8-10.8)
[2017-06-08 12:48] LABS: ALBUMIN 3.9 gm/dl (3.4-5.0); CALCIUM 8.8 mg/dl (8.5-10.1); CREATININE 0.91 mg/dl (0.60-1.40); POTASSIUM 3.6 mmol/L (3.5-5.1)
[2017-06-08 12:51] LABS: TOTAL PROTEIN 7.7 gm/dl (6.4-8.2)
[2017-06-08] MEDS ORDERED: ONDANSETRON INJ 2 MG/ML 2 ML VIAL IV STA (13:16)
[2017-06-08] MEDS ORDERED: GI COCKTAIL PO STA (13:16)
[2017-06-08] MEDS ORDERED: FAMOTIDINE 20 MG TAB PO ONE (13:30)
[2017-06-08] MEDS ORDERED: ALUMINUM/MAGNESIUM SUSP 30 ML UDC ONE (13:39)
[2017-06-08] MEDS ORDERED: LIDOCAINE HCL 2% VISC SOLN 20 ML UDC ONE (13:39)
[2017-06-08 13:55] LABS: ALBUMIN 3.9 gm/dl (3.4-5.0); TOTAL PROTEIN 7.8 gm/dl (6.4-8.2)
[2017-06-08 15:13] VITALS: BP 141/91; PULSE 84; O2SAT 98
[2017-06-08] MEDS ORDERED: FAMO20TA9 PO (15:19)
--- NOTE | 2017-06-08 15:20 | EMERGENCY ROOM VISIT NOTE ---
History Report prepared by Velma: Rey Simpson Under the Supervision of: Dr. Maynor Dow M.D. First contact with patient: 12:49 Chief Complaint: ABDOMINAL PAIN Stated Complaint: STOMACH PAIN, LEFT ARM PAIN History of Present Illness The patient is a 31 year old white male with a past medical history of anxiety, depression, s/p appendectomy who presents to the ED with a cc of intermittent upper abdominal pain beginning a few days ago. He describes pain as "burning" and rates it as a 7/10 in severity. Pain worsened with eating. Pain is generally present for a few minutes at a time. Last normal bowel movement was this morning. Positive nausea. Negative vomiting, urinary symptoms, testicular pain. No recent antibiotic use. No recent illness. Uses alcohol and tobacco. Patient denies increased stressors. Source of History: patient Onset: A few days ago Position: abdomen (upper) Symptom Intensity: 7/10 Quality: burning Timing: intermittent Modifying Factors (Worsening): eating Associated Symptoms: + nausea, No vomiting, No urinary symptoms Note: Negative: testicular pain. Review of Systems See HPI for pertinent positives and negatives. A total of ten systems were reviewed and were otherwise negative. Past Medical & Surgical Medical Problems: (1) Abdominal pain (2) Acute appendicitis (3) Acute gastroenteritis (4) Anxiety (5) Back pain (6) Back pain (7) Bronchitis (8) Chest pain (9) Chest wall pain (10) Chest wall pain (11) Depression (12) Diarrhea (13) Epigastric pain (14) Esophageal Reflux (15) Finger laceration (16) Gastroenteritis (17) Injury, crush, finger (18) Lumbar strain (19) Right corneal abrasion (20) RUQ abdominal pain (21) URI (upper respiratory infection) (22) VERTIGO Surgical Problems: (1) History of appendectomy Family History Cancer Diabetes mellitus FH: heart disease Social History Smoking Status: Current Every Day Smoker Alcohol Use: none Drug Use: none Marital Status: single Housing Status: lives with family Occupation Status: employed Current/Historical Medications No Active Prescriptions or Reported Meds Allergies Coded Allergies: No Known Allergies (Verified , 06/08/17) Physical Exam Vital Signs Date Time Temp Pulse Resp B/P (MAP) Pulse Ox O2 Delivery O2 Flow Rate FiO2 06/08/17 15:13 84 16 141/91 98 Room Air 06/08/17 13:48 88 20 134/91 98 Room Air 06/08/17 12:00 36.6 96 20 144/83 96 Room Air Physical Exam GENERAL: Awake, alert, well-appearing, NAD HENT: Normocephalic, atraumatic. EYES: Normal conjunctiva. Sclera non-icteric. NECK: Supple. No nuchal rigidity. FROM. RESPIRATORY: CTAB, no rhonchi, wheezing, crackles CARDIAC: RRR, no MRG ABDOMEN: Soft, BS+. Epigastric discomfort. Mild RUQ discomfort. Negative Garrido' s. No lower abdominal TTP. MSK: No chest wall TTP, no LE edema NEURO: GCS 15, CN 2-12 intact, moves all 4s on command SKIN: No rash or jaundice noted. Medical Decision & Procedures Laboratory Results 06/08/17 12:05 Red Blood Count 4.95, Mean Corpuscular Volume 90.7, Mean Corpuscular Hemoglobin 32.7, Mean Corpuscular Hemoglobin Concent 36.1, Mean Platelet Volume 9.4, Neutrophils (%) (Auto) 67.5, Lymphocytes (%) (Auto) 22.2, Monocytes (%) (Auto) 8.1, Eosinophils (%) (Auto) 1.6, Basophils (%) (Auto) 0.3, Neutrophils # (Auto) 5.07, Lymphocytes # (Auto) 1.67, Monocytes # (Auto) 0.61, Eosinophils # (Auto) 0.12, Basophils # (Auto) 0.02 06/08/17 12:05 Test 06/08/17 12:05 06/08/17 13:42 White Blood Count 7.51 K/uL (4.8-10.8) Red Blood Count 4.95 M/uL (4.7-6.1) Hemoglobin 16.2 g/dL (14.0-18.0) Hematocrit 44.9 % (42-52) Mean Corpuscular Volume 90.7 fL (80-100) Mean Corpuscular Hemoglobin 32.7 pg (25-34) Mean Corpuscular Hemoglobin Concent 36.1 g/dl (32-36) Platelet Count 187 K/uL (130-400) Mean Platelet Volume 9.4 fL (7.4-10.4) Neutrophils (%) (Auto) 67.5 % Lymphocytes (%) (Auto) 22.2 % Monocytes (%) (Auto) 8.1 % Eosinophils (%) (Auto) 1.6 % Basophils (%) (Auto) 0.3 % Neutrophils # (Auto) 5.07 K/uL (1.4-6.5) Lymphocytes # (Auto) 1.67 K/uL (1.2-3.4) Monocytes # (Auto) 0.61 K/uL (0.11-0.59) Eosinophils # (Auto) 0.12 K/uL (0-0.5) Basophils # (Auto) 0.02 K/uL (0-0.2) RDW Standard Deviation 44.8 fL (36.4-46.3) RDW Coefficient of Variation 13.7 % (11.5-14.5) Immature Granulocyte % (Auto) 0.3 % Immature Granulocyte # (Auto) 0.02 K/uL (0.00-0.02) Anion Gap 7.0 mmol/L (3-11) Est Creatinine Clear Calc Drug Dose 140.4 ml/min Estimated GFR () 127.9 Estimated GFR (Non- 110.3 BUN/Creatinine Ratio 8.2 (10-20) Calcium Level 8.8 mg/dl (8.5-10.1) Total Bilirubin 0.7 mg/dl (0.2-1) Direct Bilirubin 0.1 mg/dl (0-0.2) Aspartate Amino Transf (AST/SGOT) 35 U/L (15-37) Alanine Aminotransferase (ALT/SGPT) 56 U/L (12-78) Alkaline Phosphatase 69 U/L (45-117) Total Protein 7.8 gm/dl (6.4-8.2) Albumin 3.9 gm/dl (3.4-5.0) Globulin 3.8 gm/dl (2.5-4.0) Albumin/Globulin Ratio 1.0 (0.9-2) Lipase 337 U/L (73-393) Urine Color YELLOW Urine Appearance CLEAR (CLEAR) Urine pH 7.0 (4.5-7.5) Urine Specific [place] 1.005 (1.000-1.030) Urine Protein NEG (NEG) Urine Glucose (UA) NEG (NEG) Urine Ketones NEG (NEG) Urine Occult Blood NEG (NEG) Urine Nitrite NEG (NEG) Urine Bilirubin NEG (NEG) Urine Urobilinogen NEG (NEG) Urine Leukocyte Esterase TRACE (NEG) Urine WBC (Auto) 1-5 /hpf (0-5) Urine RBC (Auto) 0-4 /hpf (0-4) Urine Hyaline Casts (Auto) 0 /lpf (0-5) Urine Epithelial Cells (Auto) 5-10 /lpf (0-5) Urine Bacteria (Auto) NEG (NEG) Laboratory results reviewed by me Medications Administered Medications (Trade) Dose Ordered Sig/Tegan Route Start Time Stop Time Status Last Admin Dose Admin Famotidine (Pepcid Tab) 20 mg NOW ONCE PO 06/08/17 13:30 06/08/17 13:31 DC 06/08/17 13:46 20 MG Lidocaine HCl (Viscous Lidocaine 2% Soln) 20 ml STK-MED ONCE .ROUTE 06/08/17 13:39 06/08/17 13:40 DC 06/08/17 13:46 20 ML Al Hydroxide/Mg Hydroxide (Maalox Susp) 30 ml STK-MED ONCE .ROUTE 06/08/17 13:39 06/08/17 13:40 DC 06/08/17 13:46 30 ML ED Course 1304: The patient was evaluated in room C12B. A complete history and physical exam was performed. 1348: I reevaluated the patient. Discussed results and discharge instructions: he verbalized understanding and agreement. The patient is ready for discharge. Medical Decision The patient is a 31 year old white male with a past medical history of anxiety, depression, s/p appendectomy who presents to the ED with a cc of intermittent upper abdominal pain beginning a few days ago. Differential diagnosis: Etiologies such as appendicitis, diverticulitis, PUD, biliary pathology, UTI, pancreatitis, obstruction, mesenteric ischemia, aortic pathology, infections, inflammatory bowel disease, renal colic, as well as others were entertained. Patient was seen and evaluated the bedside. Patient does complain of some epigastric discomfort and burning sensation. Patient denies any chest pain or shortness of breath. These are not exertional symptoms. Patient does have some mild epigastric discomfort some mild right upper quadrant discomfort but negative Garrido's. Patient denies any infectious symptoms. Patient did have blood work completed and was given medications including a GI cocktail and Pepcid. Upon reassessment the patient felt mildly improved. Patient's white blood cell count is normal. H&H normal. Patient's LFTs and lipase within normal limits. Patient's kidney function is within normal limits. I discussed with the patient that he needs to consider alcohol and smoking cessation. He should also avoid spicy and citrus foods. Patient was advised take Pepcid 20 mg twice daily and to follow-up with his PCP. I do not believe he requires further imaging or treatment as the patient is very well- appearing this does sound to be gastritis versus peptic ulcer disease. Given that the patient only has mild right upper quadrant discomfort with negative LFTs and bili is I believe this is less likely gallbladder disease. No ultrasound will be obtained at this time. Patient was given strict follow-up, discharge, and return precautions. All questions were answered. Patient was deemed suitable for outpatient follow-up at this time. Patient agreed with the plan of care and was safely discharged home. Medication Reconcilliation Current Medication List: was personally reviewed by me Blood Pressure Screening Patient's blood pressure: Elevated blood pressure Blood pressure disposition: Elevated BP felt to be situational Impression Primary Impression: Gastritis Additional Impression: Encounter for smoking cessation counseling Scribe Attestation The scribe's documentation has been prepared under my direction and personally reviewed by me in its entirety. I confirm that the note above accurately reflects all work, treatment, procedures, and medical decision making performed by me. Departure Information Dispostion Home / Self-Care Prescriptions Famotidine (PEPCID) 20 Mg Tab 20 MG PO BID for 30 Days, #60 TAB Prov: Maynor Dow M.D. 06/08/17 Referrals No Doctor, Assigned (PCP) Patient Instructions ED PUD Vs Gastritis, ED Smoking Cessation, [facility] Additional Instructions Please return to the emergency department if you have worsening or recurrent symptoms not amenable to at-home treatment. Please call for a follow-up appointment with her primary care physician. Please take your medications as prescribed. If you have other concerns and/or complaints please feel free to also call your primary care physician's office or return the ED for further evaluation, management, and treatment. Avoid NSAIDs like Motrin, ibuprofen, naproxen. Take your medications as prescribed. Consider alcohol and smoking cessation. Please avoid spicy and citrus foods. Also consider avoiding chocolate and peppermint. You have been examined and treated today on an emergency basis only. This is not a substitute for, or an effort to provide, complete comprehensive medical care. It is impossible to recognize and treat all injuries or illnesses in a single emergency department visit. It is therefore important that you follow up closely with [facility], your PCP, and/or your specialist(s). Call as soon as possible for an appointment. Thank you for your time and consideration. I look forward to speaking with you again soon. Please don't hesitate to call us if you have any questions. Problem Qualifiers Primary Impression: Gastritis Gastritis type: unspecified gastritis Chronicity: acute Gastritis bleeding : without bleeding Qualified Codes: K29.00 - Acute gastritis without bleeding
== END 2017-06-08 15:32 | disposition home or self-care (01) ==
LOC: C.EDB 11:59 → C.EDC 15:32
DX: K29.70 Gastritis, unspecified, without bleeding (principal); Z71.6 Tobacco abuse counseling; F41.9 Anxiety disorder, unspecified; F32.9 Major depressive disorder, single episode, unspecified; K21.9 Gastro-esophageal reflux disease without esophagitis; Z80.9 Family history of malignant neoplasm, unspecified; Z83.3 Family history of diabetes mellitus; F17.210 Nicotine dependence, cigarettes, uncomplicated